=== PATIENT | female | born 1985 | race Caucasian/White ===

== ENCOUNTER 2016-02-21 14:05 | Emergency (ER) | payer MEDICAID ==
[2016-02-21 15:03] VITALS: PULSE 92; TEMP 98.7; BMI 31.2
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
[2016-02-21 16:32] VITALS: BP 126/81
[2016-02-21] MEDS ORDERED: OXYCODONE HCL 5 MG TABLET PO ONE (16:42)
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
== END 2016-02-21 18:08 | disposition home or self-care (01) ==
LOC: ED 14:05 → EDMC 18:08
DX: S62.316A Displaced fracture of base of fifth metacarpal bone, right hand, initial encounter for closed fracture (principal); S39.012A Strain of muscle, fascia and tendon of lower back, initial encounter; S62.344A Nondisplaced fracture of base of fourth metacarpal bone, right hand, initial encounter for closed fracture; Y08.09XA Assault by strike by other specified type of sport equipment, initial encounter
CPT/HCPCS: 29125; 72110; 73130; 99283; J3490